=== PATIENT | female | born 1955 | race Caucasian/White ===

== ENCOUNTER 2018-01-07 13:40 | Emergency (ER) | payer MEDICAID ==
[~2018-01-07] VITALS: Ht 157.5 cm; Wt 89.3 kg
[~2018-01-07 13:40] MED LIST: ASPIR 8181 MG PO; INS7030 SC; REGLAN10 MG PO; T3 PO; ZESTRIL40 MG PO; ZOCOR40 MG PO
[2018-01-07 13:52] VITALS: Ht 157.5 cm; Wt 89.3 kg
[2018-01-07 14:53] LABS: PLATELET COUNT 263 x10^3mcL (130-400); RED CELL DISTRIBUTION WIDTH 14.5 % (11.5-14.5)
[2018-01-07 14:56] LABS: CALCIUM 8.4 mg/dL (8.5-10.1); CARBON DIOXIDE 27.1 mmol/L (21-32); CREATININE SERUM 1.5 mg/dL (0.6-1.0); POTASSIUM SERUM 5.1 mmol/L (3.5-5.1)
[2018-01-07 15:34] VITALS: BP 174/79
== END 2018-01-07 15:34 | disposition home or self-care (01) ==
LOC: ED 13:40
PROVIDERS: Emergency Medicine
DX: J32.8 Other chronic sinusitis (principal); I10 Essential (primary) hypertension; E11.9 Type 2 diabetes mellitus without complications; E78.00 Pure hypercholesterolemia, unspecified
CPT/HCPCS: 82962; J7030; Q0092

== ENCOUNTER 2018-07-21 10:00 | Emergency (ER) | payer MEDICAID ==
[~2018-07-21] VITALS: Ht 152.4 cm; Wt 93.4 kg
[2018-07-21 10:19] VITALS: Ht 152.4 cm; Wt 93.4 kg
[2018-07-21 12:56] VITALS: BP 158/68
== END 2018-07-21 12:56 | disposition home or self-care (01) ==
LOC: ED 10:00
DX: I73.89 Other specified peripheral vascular diseases (principal); R60.0 Localized edema; E78.00 Pure hypercholesterolemia, unspecified; I10 Essential (primary) hypertension
CPT/HCPCS: Q0092

== ENCOUNTER 2018-12-02 15:41 | Emergency (ER) | payer OTHER ==
[~2018-12-02] VITALS: Ht 162.6 cm; Wt 99.8 kg
[2018-12-02 19:07] LABS: BASOPHIL % 0.2 % (0-2); PLATELET COUNT 277 x10^3mcL (130-400)
[2018-12-02 19:09] LABS: CALCIUM 8.7 mg/dL (8.5-10.1); CARBON DIOXIDE 25.5 mmol/L (21-32); CREATININE SERUM 1.6 mg/dL (0.6-1.0); POTASSIUM SERUM 4.3 mmol/L (3.5-5.1); RED CELL DISTRIBUTION WIDTH 15.6 % (11.5-14.5)
[2018-12-02 19:16] LABS: ALBUMIN 3.4 g/dL (3.4-5.0); BILIRUBIN TOTAL 0.5 mg/dL (0.20-1.00); TOTAL PROTEIN, SERUM 7.8 g/dL (6.4-8.2)
[2018-12-02 20:18] LABS: UA SPECIFIC GRAVITY 1.025 (1.005-1.035)
[2018-12-02 20:19] LABS: microscopic required? YES
[2018-12-02 20:21] LABS: urine erythrocyte 2+ (NEGATIVE)
[2018-12-03 05:13] VITALS: BP 135/54
== END 2018-12-03 05:33 | disposition short-term general hospital (02) ==
LOC: ED 15:41
PROVIDERS: Emergency Medicine
DX: R11.10 Vomiting, unspecified (principal); R07.89 Other chest pain; I10 Essential (primary) hypertension; E11.9 Type 2 diabetes mellitus without complications; E78.00 Pure hypercholesterolemia, unspecified; I82.409 Acute embolism and thrombosis of unspecified deep veins of unspecified lower extremity
CPT/HCPCS: J2270; J2405; J2765; J3490; J7030; Q0092